=== PATIENT | female | born 2000 | race Hispanic/Latino ===

== ENCOUNTER 2022-03-29 04:55 | Inpatient (IN) | payer OTHER ==
[~2022-03-29] VITALS: Ht 167.6 cm; Wt 89.9 kg
[2022-03-29] VITALS (29 sets, daily range): BP systolic 125–158; BP diastolic 60–109
[2022-03-29 05:53] LABS: HEMOGLOBIN 10.6 g/dl (12.0-15.5); MEAN CORPUSCULAR HEMOGLOBIN 29.1 pg (27.0-33.0); MEAN CORPUSCULAR HGB CONC 33.1 g/dl (32.0-36.5); MEAN CORPUSCULAR VOLUME 87.9 fl (80.0-96.0); PLATELET COUNT, AUTOMATED 151 10^3/uL (150-450); RED BLOOD COUNT 3.64 10^6/uL (4.00-5.40); WHITE BLOOD COUNT 8.3 10^3/uL (4.0-10.0)
[2022-03-29] MEDS ORDERED: LACTATED RINGER'S 1000 ML IV STA (06:18)
[2022-03-29] MEDS ORDERED: LIDOCAINE 1% MDV 20ML VIAL INFIL PRN (06:20)
[2022-03-29] MEDS ORDERED: OXYTOCIN INJ 10UNITS/ML 1ML VIAL IM PRN (06:20)
[2022-03-29] MEDS ORDERED: LR 1,000 ML IV SCH ×2 (06:20)
[2022-03-29] MEDS ORDERED: CARBOPROST TROMETHAMINE 250 MCG/ML AMP IM PRN (06:20)
[2022-03-29] MEDS ORDERED: OXYTOCIN DRIP 30 UNITS in IV 1 EA IV SCH (06:20)
[2022-03-29] MEDS ORDERED: OXYTOCIN INJ 10UNITS/ML 1ML VIAL IV PRN (06:20)
[2022-03-29] MEDS ORDERED: OXYTOCIN DRIP 30 UNITS in IV 1 EA IV PRN ×6 (06:20)
[2022-03-29] MEDS ORDERED: TRANEXAMIC ACID INJection 1,000 MG in NS 100 ML IV PRN (06:20)
[2022-03-29] MEDS ORDERED: METHYLERGONOVINE MALEATE 0.2 MG/ML VIAL (J2210) IM PRN (06:20)
[2022-03-29] MEDS ORDERED: LR 500 ML IV PRN (09:05)
[2022-03-29] MEDS ORDERED: NALOXONE INJ 0.4MG/1ML VIAL IV PRN (09:05)
[2022-03-29] MEDS ORDERED: ePHEDrine SULFATE 25 MG/5 ML(5MG/ML) SYRINGE IVP PRN (09:05)
[2022-03-29] MEDS ORDERED: FENTANYL/ROPIVACAINE/NACL BAG 100 ML EPIDURAL SCH (09:05)
[2022-03-29] MEDS ORDERED: EPIDURAL/PCA KEYS XX PRN (09:05)
[2022-03-29] MEDS ORDERED: ONDANSETRON 4MG 2ML VIAL IV PRN (09:05)
[2022-03-29] MEDS ORDERED: diphenhydrAMINE 50MG/ML VIAL IV PRN (09:05)
[2022-03-29] MEDS ORDERED: MOM 30ML SUSPENSION UDC PO PRN (13:15)
[2022-03-29] MEDS ORDERED: DIBUCAINE 1% OINTMENT 30GM TOP PRN (13:15)
[2022-03-29] MEDS ORDERED: ACETAMINOPHEN 500 MG TAB PO PRN (13:15)
[2022-03-29] MEDS ORDERED: RHOGAM 300 MCG (1500 IU) INJ (J2790) IM SCH (13:15)
[2022-03-29] MEDS ORDERED: DOCUSATE SODIUM 100MG CAPSULE PO PRN (13:15)
[2022-03-29] MEDS: IBUPROFEN 800 MG TAB PO PRN (13:59)
[2022-03-30 05:58] VITALS: BP 120/67
[2022-03-30] MEDS: PRENATAL VITAMINS CHEWABLE TABLET PO SCH (10:04)
[2022-03-30 18:00] VITALS: BP 128/76
[2022-03-31 06:00] VITALS: BP 125/71
[2022-03-31] MEDS: PRENATAL VITAMINS CHEWABLE TABLET PO SCH (08:38)
[2022-03-31] MEDS ORDERED: MEASLES,MUMPS,RUBELLA VACCINE INJ (MMR-II) (90707) SC.IMMUN ONE (09:00)
[2022-03-31] MEDS: IBUPROFEN 800 MG TAB PO PRN (11:01)
== END 2022-03-31 14:45 | disposition home or self-care (01) | DRG 807 ==
LOC: M LDO 04:55 → M LDI 06:10 → M OBS 16:17
PROVIDERS: ADMIT Obstetrics & Gynecology; ATTEND Obstetrics & Gynecology
PROC: 10E0XZZ Delivery of Products of Conception, External Approach (ICD-10-PCS; principal; 2022-03-29)
PROC: 0KQM0ZZ Repair Perineum Muscle, Open Approach (ICD-10-PCS; 2022-03-29)
DX: O26.03 Excessive weight gain in pregnancy, third trimester (principal); Z37.0 Single live birth; Z3A.39 39 weeks gestation of pregnancy; O70.1 Second degree perineal laceration during delivery

== ENCOUNTER 2022-10-18 20:39 | Emergency (ER) | payer OTHER ==
[~2022-10-18] VITALS: Ht 167.6 cm; Wt 83.5 kg
[2022-10-18] MEDS ORDERED: ACETAMINOPHEN TAB 650MG DOSE (2X325MG) PO ONE (21:50)
[2022-10-18] MEDS ORDERED: AMOX875T2 PO (23:34)
[2022-10-18 23:47] VITALS: BP 125/81; TEMP 100.1; O2SAT 96
== END 2022-10-18 23:54 | disposition home or self-care (01) ==
LOC: M ED 20:39
DX: J06.9 Acute upper respiratory infection, unspecified (principal); K04.7 Periapical abscess without sinus